=== PATIENT | male | born 1955 | race African-American/Black ===

== ENCOUNTER 2018-06-30 05:56 | Inpatient (IN) | payer OTHER ==
[2018-06-19 12:05] VITALS: BMI 27.6
[2018-06-30] MEDS ORDERED: ROPIVICAINE 0.2%/MORPH PF/KETOROLAC - 51ML DISP.SYRINGE IA ONE ×4 (07:08→11:58)
[2018-06-30] MEDS ORDERED: CELECOXIB 200 MG CAPSULE PO ONE (07:08)
[2018-06-30] MEDS ORDERED: oxyCODONE HCL 10 MG SUSTAINED ACTING TABLET PO ONE (07:08)
[2018-06-30] MEDS ORDERED: TRANEXAMIC ACID 1000 MG/10 ML VIAL IVPUSH ONE (07:08)
[2018-06-30] MEDS ORDERED: CEFAZOLIN 2 GM in DEXTROSE 5%-WATER - 50 ML IVPB ONE (07:08)
[2018-06-30] MEDS ORDERED: DEXAMETHASONE SOD PHOSPHATE/PF 10 MG/ML SDV ONE (07:31)
[2018-06-30] MEDS ORDERED: EPINEPHrine/PF 1 MG/1 ML (1:1,000) AMPULE ONE (07:31)
[2018-06-30] MEDS ORDERED: MIDAZOLAM HCL 2 MG/2 ML SINGLE DOSE VIAL ONE ×2 (07:32→08:13)
[2018-06-30] MEDS ORDERED: SODIUM CHLORIDE 0.9% P/F 10 ML VIAL IJ ONE (07:32)
[2018-06-30] MEDS ORDERED: BUPIVACAINE HCL/PF (5 MG/ML) 30 ML VIAL IJ ONE (07:32)
[2018-06-30] MEDS ORDERED: BUPIVACAINE LIPOSOME/PF (EXPAREL) 266 MG/20 ML VIAL ONE (07:32)
[2018-06-30] MEDS ORDERED: PROPOFOL 20 ML ONE ×4 (08:12)
[2018-06-30] MEDS ORDERED: SUCCINYLCHOLINE CHLORIDE 200 MG/10 ML VIAL ONE (08:12)
[2018-06-30] MEDS ORDERED: LIDOCAINE HCL 2% JELLY (5 ML/TUBE) ONE (09:52)
[2018-06-30] MEDS ORDERED: TRANEXAMIC ACID 1000 MG/10 ML VIAL ONE (11:48)
[2018-06-30] MEDS ORDERED: MAG HYDROX/AL HYDROX/SIMETH 30 ML UNIT-DOSE CUP PO PRN (12:51)
[2018-06-30] MEDS ORDERED: ONDANSETRON 4 MG/2 ML VIAL IVPUSH PRN ×2 (12:51→13:05)
[2018-06-30] MEDS ORDERED: oxyCODONE HCL 5 MG TABLET PO PRN (12:57)
[2018-06-30] MEDS ORDERED: LACTATED RINGERS SOLUTION 1,000 ML IV SCH (13:00)
[2018-06-30] MEDS ORDERED: PROMETHAZINE HCL 25 MG/1 ML VIAL IVPUSH PRN (13:05)
--- NOTE | 2018-06-30 15:18 | PN ---
Physical Exam: SUBJECTIVE: Patient seen and examined, patient is s/p bilateral knee replacement , 06/30/18, Dr Manzano, spinal anesthesia, patient is requesting comfortably in bed, reports feeling well. OBJECTIVE: patient is a 62 y/o male with a past medical history of GERD, htn, and osteoarthritis. Patient was admitted to the medical surgery floor after an elective bilateral knee replacement, with Dr Shaver, 06/30/18, spinal anesthesia. Vital Signs Period Temp Pulse Resp BP Sys/Helton Pulse Ox Last 24 Hr 98 F-98.4 F 70-89 16-18 110-128/73-83 99-100 GENERAL: The patient is awake, alert, and fully oriented, in no acute distress. HEAD: Normal with no signs of trauma. EYES: PERRL, extraocular movements intact, sclera anicteric, conjunctiva clear. No ptosis. ENT: Ears normal, nares patent, oropharynx clear without exudates, moist mucous membranes. NECK: Trachea midline, full range of motion, supple. LUNGS: Breath sounds equal, clear to auscultation bilaterally, no wheezes, no crackles, no accessory muscle use. HEART: Regular rate and rhythm, S1, S2 without murmur, rub or gallop. ABDOMEN: Soft, nontender, nondistended, normoactive bowel sounds, no guarding, no rebound, no hepatosplenomegaly, no masses. EXTREMITIES: 2+ pulses, warm, well-perfused, no edema. dressing noted to billateral knees with hemovac drains bilaterally serrous sangenous fluid draining NEUROLOGICAL: Cranial nerves II through XII grossly intact. Normal speech, gait not observed. PSYCH: Normal mood, normal affect. SKIN: Warm, dry, normal turgor, no rashes or lesions noted Active Medications Generic Name Dose Route Start Last Admin Trade Name Freq PRN Reason Stop Dose Admin Acetaminophen 650 mg 06/30/18 17:00 Tylenol - PO 07/01/18 23:01 Q6H BLADIMIR Al Hydroxide/Mg Hydroxide 30 ml 06/30/18 12:51 Mylanta Oral Suspension - PO Q4H PRN DYSPEPSIA Amlodipine Besylate 5 mg 07/01/18 10:00 Norvasc - PO DAILY BLADIMIR Aspirin 325 mg 06/30/18 22:00 Asa - PO BID [facility] Celecoxib 200 mg 06/30/18 22:00 Celebrex - PO BID [facility] Fentanyl 50 mcg 06/30/18 13:05 Sublimaze Injection - IVPUSH [id number] PRN PAIN-PACU ORDER X 4 DOSES ONLY Lactated Ringer's 1,000 mls @ 125 mls/hr 06/30/18 13:00 Lactated Ringers Solution IV 07/01/18 06:00 ASDIR [facility] Cefazolin Sodium 1 gm in 50 mls @ 100 mls/hr 06/30/18 16:00 Ancef 1 Gm Premixed Ivpb - IVPB 07/01/18 00:29 Q8H [facility] Lactobacillus Acidophilus 1 tab 07/01/18 10:00 Bacid - PO DAILY [facility] Losartan Potassium 50 mg 07/01/18 10:00 Cozaar - PO DAILY [facility] Multivitamins/Minerals/Vitamin C 1 tab 07/01/18 10:00 Tab-A-Vit - PO DAILY [facility] Ondansetron HCl 4 mg 06/30/18 12:51 Zofran Injection IVPUSH Q6H PRN NAUSEA Oxycodone HCl 5 mg 06/30/18 12:57 Roxicodone - PO Q3H PRN PAIN LEVEL 1-5 Oxycodone HCl 10 mg 06/30/18 12:58 Roxicodone - PO Q3H PRN PAIN LEVEL 6-10 Pantoprazole Sodium 40 mg 07/01/18 10:00 Protonix - PO DAILY [facility] Promethazine HCl 12.5 mg 06/30/18 13:05 Phenergan Injection - IVPUSH Q6H PRN NAUSEA-FOR RESCUE AFTER 15 MIN Senna/Docusate Sodium 2 tablet 06/30/18 22:00 Pericolace - PO BID [facility] ASSESSMENT/PLAN: 1) MS billateral knee replacement, POD #0 - monitor output from hemovac drains, repeat hgb tomm in AM - prn pain medication - physical therapy as per the orthopedist 2) cardiovascular hypertension - continue home dose losartan and amlodipine [- B/p at goal 3)GI GERD - continue protonix f/e/n - regular diet ppx - asa as per ortho - protonix - physical therapy dispo: pt requires inpatient admission - Visit type - Emergency Visit Emergency Visit: No - New Patient This patient is new to me today: Yes Date on this admission: 11/09/18 - Critical Care Critical Care patient: No - Discharge Referral Referred to [facility] Med [facility] No
[2018-06-30] MEDS ORDERED: BENZOCAINE/MENTH/CETYLPYRD CL 1 EACH LOZENGE MM PRN (15:26)
--- NOTE | 2018-06-30 15:48 | OP ---
Operative Note - Note: Operative Date: 06/30/18 Pre-Operative Diagnosis: Osteoarthritis bilateral knees Operation: Bilateral total knee replacements, curt system Findings: as dictated Implants: as dictated Post-Operative Diagnosis: Same as Pre-op Surgeon: Stef Manzano Ignition Mechanic: Douglas Kohler Anesthesiologist/SEQUINS STRINGER: Nathan Woodson Anesthesia: Spinal (Blocks: adductor canal and selective tibial blocks), Local ( 50ml .2%Ropivacaine, Ketorlac 30mg, 5mg Duramorph combination injected subcutaneously at completion of case) Specimens Removed: bone cuts Estimated Blood Loss (mls): 50 (ml) Drains & Tubes with Location: Hemovac x 2 intra-articular. Topical TXA 15ml into each joint at complation of case. Tourniquet time: L 92mins at 300mmHg, R 112 mins at 300mmHg Drains, Volume Out (mls): 700 (ml clear urine output. 11ooml LR administered)
--- NOTE | 2018-06-30 15:49 | SURG ---
Surgery Setter Machine Note Setter Machine: Douglas Kohler PA-C (Suzy) Date of Service: 06/30/18 Diagnosis: bilateral knee osteoarthritis Procedure: bilateral total knee replacements, curt system I was present for the entirety of the operative procedure. For further detail, please refer to operative report. Visit type - Case Type Case Type: Scheduled - Emergency Emergency Visit: No - New patient This patient is new to me today: Yes Date on this admission: 06/30/18 - Critical Care Critical Care patient: No
[2018-06-30] MEDS ORDERED: morphine SULFATE 4 MG/ML VIAL IVPUSH PRN (15:51)
[2018-06-30] MEDS: ACETAMINOPHEN 325 MG TABLET (FP) PO SCH ×2 (16:53→23:14)
[2018-06-30] MEDS: oxyCODONE HCL 5 MG TABLET PO PRN ×2 (16:54→21:02)
[2018-06-30] MEDS: CEFAZOLIN 1 GM/D5W 1 GM/50 ML BAG IVPB SCH ×2 (16:55→23:15)
[2018-06-30] MEDS: SENNOSIDES/DOCUSATE COMBO (SENNA PLUS) TABLET (UD) PO SCH (21:01)
[2018-06-30] MEDS: CELECOXIB 200 MG CAPSULE PO SCH (21:01)
[2018-06-30] MEDS: ASPIRIN 325 MG TABLET PO SCH (21:01)
[2018-07-01] MEDS: ACETAMINOPHEN 325 MG TABLET (FP) PO SCH ×3 (06:19→23:37)
[2018-07-01] MEDS: oxyCODONE HCL 5 MG TABLET PO PRN ×4 (06:19→21:19)
[2018-07-01 08:34] LABS: HEMATOCRIT 39.1 % (35.4-49); HEMOGLOBIN 12.9 GM/dl (11.7-16.9); MCH 32.5 pg (25.7-33.7); MEAN CELL VOLUME 98.6 fl (80-96); PLATELET COUNT 207 K/MM3 (134-434); RBC 3.97 M/mm3 (4.00-5.60); RDW 12.4 % (11.9-15.9); WHITE BLOOD COUNT 7.9 K/mm3 (4.0-10.8)
[2018-07-01 08:43] LABS: ANION GAP 5 MMOL/L (8-16); BLOOD UREA NITROGEN 14 mg/dl (7-18); CALCIUM 8.8 mg/dl (8.4-10.2); CHLORIDE 105 mmol/L (98-107); CO2 27 mmol/L (22-28); CREATININE 0.8 mg/dl (0.6-1.3); GLUCOSE,RANDOM 124 mg/dl (74-106); MAGNESIUM 1.7 mg/dL (1.8-2.4); POTASSIUM 4.8 mmol/L (3.5-5.1); SODIUM 137 mmol/L (136-145)
--- NOTE | 2018-07-01 09:13 | OP ---
DATE OF OPERATION: DATE OF DICTATION: 06/30/2018 PREOPERATIVE DIAGNOSIS: Bilateral knee osteoarthritis. POSTOPERATIVE DIAGNOSIS: Bilateral knee osteoarthritis. OPERATION PERFORMED: Bilateral total knee arthroplasty. SURGEON: Stef Manzano MD PACKING MACHINE OPERATOR: ALE. ANESTHESIA: Spinal and block. DISPOSITION: Patient returned to the recovery room in stable condition. COMPONENTS USED: Same sizes were used on both left and the right except for left sides on the left and right sides on the right. We used to size 6 posterior stabilized press-fit femoral component. We used a size 6 press-fit tibial component and an 11-mm posterior stabilized articular insert and a 33-mm cemented patella component. DRAINS: Size 1 Hemovac each side. ESTIMATED BLOOD LOSS: Less than 50 mL each side. TOURNIQUET TIME: 90 minutes each side. Release is none. Postoperative range of motion is 0-135 degrees each side. FINDINGS: Severe end-stage arthritis. INDICATION FOR THE PROCEDURE: Patient failed nonoperative treatment for bilateral knee arthritis and was indicated for a bilateral total knee replacement. Preoperatively in the waiting area as well as in the office, I had a long discussion with the patient regarding the plan, the expected outcome, and the risks, benefits, and alternatives of surgery. The risks include, but are not limited to, infection, which may require future surgery and removal of implants, bleeding, which may require transfusion, damage to nerves, arteries, veins, tendons, muscles, and other adjacent structures leading to possible numbness, weakness, decreased function, and/or possible need for surgical repair. Also discussed was the possibility of intraoperative and postoperative fractures, implant loosening, stiffness, need for extensive therapy, and need for revision surgery for a variety of reasons. Also discussed blood clots and other possible medical complications. This was discussed at least, and consent was obtained. We also discussed the possibility of doing 1 leg at a time, and this would decrease his risk. PROCEDURE IN DETAIL: The patient was taken to the operating room and placed on the operating room table in a supine position. Following induction of anesthesia, a well-padded tourniquet was placed high on both thighs, and both lower extremities were prepped and draped in a sterile fashion. A time-out was performed to confirm the correct side, verified that the sites were marked, and confirmed the correct patient and procedure to be performed as well as that the patient received the appropriate preoperative antibiotics, and tranexamic acid, and had a compression device on either leg since it was bilateral. The exact same procedure was performed first on the left and then the right. We waited until the bandage was on the left and then started the left side. Tourniquet was elevated by a midline incision and medial parapatellar arthrotomy. Checkpoints were placed in the femur and tibia, and through stab incisions in the tibia and femur we placed the antenna. The patient was then registered, and the knee was balanced. We planned our surgery with appropriate cuts. We then well protecting the surrounding soft tissues, made our bony cuts. We then placed a laminar manager rfid sequentially in the lateral and mild joint spaces. Posterior osteophytes, cruciate ligaments, and menisci were all excised. We then placed a trial tibial component and a trial femoral component. Drilled the lug holes and the box for the femur with an 11-mm polyethylene. We had full extension and were well balanced with regards to varus and valgus stress. We had full flexion. The patella tracked centrally. There was good soft tissue tension. We then measured the patella at 24 mm, cut it down to 15 mm using a guide. Reconstructed it with a 33-mm button and then performed a lateral double cut with a patella trial in place. The patella tracked centrally. There was good soft tissue tension, range of motion, and balance. We then punched the tibia in the appropriate external rotation. Did a 3-minute soak with a diluted Betadine solution. The knee was copiously irrigated. We impacted the final implants as listed above and cemented the patella and removed excess cement. When all of the cement was hardened, we copiously irrigated the knee, used 1.5 g of tranexamic acid topically on each knee, injected local anesthetic, and placed the deep drain. We closed the arthrotomy with 0 Vicryl and 0 V-Lock. With the arthrotomy closed, there was good stability, range of motion, soft tissue tension, and the patella tracked centrally. A 2-0 Vicryl and bill were used after all checkpoints and antenna had been removed prior to closure of the arthrotomy. Final range of motion 0-135 degrees. Equal balance on both sides. Wound classification clean. Specimen is bone. Complications, none known. Compartments were soft at the end of the procedure. Pulses were palpated, and the patient was returned to the recovery room in stable condition and will be mobilized and weightbearing as tolerated. Zander SANDERS/[id number]
[2018-07-01] MEDS: LOSARTAN POTASSIUM 50 MG TABLET (FP) PO SCH (09:43)
[2018-07-01] MEDS: CELECOXIB 200 MG CAPSULE PO SCH ×2 (09:44→21:19)
[2018-07-01] MEDS: ASPIRIN 325 MG TABLET PO SCH ×2 (09:44→21:19)
[2018-07-01] MEDS: LACTOBACILLUS ACIDOPHILUS 1 TABLET PO SCH (09:44)
[2018-07-01] MEDS: amLODIPine BESYLATE 5 MG TABLET (FP) PO SCH (09:44)
[2018-07-01] MEDS: SENNOSIDES/DOCUSATE COMBO (SENNA PLUS) TABLET (UD) PO SCH ×2 (09:45→21:19)
[2018-07-01] MEDS: MULTIVITAMINS (DAILY MVI) TABLET (FP) PO SCH (09:45)
[2018-07-01] MEDS: PANTOPRAZOLE 40 MG TABLET (FP) PO SCH (09:45)
--- NOTE | 2018-07-01 09:52 | PN ---
Progress Note (short form) - Note Progress Note: no complaints a vitals and labs reviewed a and o x3 nad both legs nvid dressings dry drains removed A/P: s/p bl tka pod#1 doing well -pt/ot/wbat asa and mechanical for vte proph -dispo: rehab tuesday
[2018-07-01] MEDS ORDERED: PATIENT'S OWN MEDICATION (NON-FORMULARY) (L.Acidoph,Paracasei, B.Lactis [Probiotic] 1 EACH PO SCH (10:00)
[2018-07-01] MEDS ORDERED: PATIENT'S OWN MEDICATION (NON-FORMULARY) (Dexlansoprazole [Dexilant] 60 MG) PO SCH (10:00)
[2018-07-01] MEDS ORDERED: SODIUM CHLORIDE 1,000 ML IV STA (14:35)
--- NOTE | 2018-07-01 14:43 | PN ---
Physical Exam: SUBJECTIVE: Patient seen and examined at bedside. Subdued. Became dizzy and nauseous earlier with standing. Feels better now. Pain is presently well- managed. Bilateral drains removed earlier by Dr. Manzano. OBJECTIVE: Vital Signs Period Temp Pulse Resp BP Sys/Helton Pulse Ox Last 24 Hr 97.4 F-98.3 F 65-92 16-19 111-127/65-74 96-99 GENERAL: The patient is awake, alert, and fully oriented, in no acute distress. LUNGS: Breath sounds equal, clear to auscultation bilaterally, no wheezes, no crackles, no accessory muscle use. HEART: Regular rate and rhythm, S1, S2 ABDOMEN: Soft, nontender, nondistended LOWER EXTREMITIES: SCDs, TEDs, surgical dressings c/d/i; surgical wounds not visualized NEUROLOGICAL: Cranial nerves II through XII grossly intact. Normal speech. SKIN: Warm, dry, normal turgor Laboratory Results - last 24 hr 07/01/18 07/01/18 07:20 07:20 WBC 7.9 RBC 3.97 L Hgb 12.9 Hct 39.1 MCV 98.6 H MCH 32.5 MCHC 33.0 RDW 12.4 Plt Count 207 MPV 9.0 Sodium 137 Potassium 4.8 Chloride 105 Carbon Dioxide 27 Anion Gap 5 L BUN 14 Creatinine 0.8 Creat Clearance w eGFR > 60 Random Glucose 124 H D Calcium 8.8 Magnesium 1.7 L Active Medications Generic Name Dose Route Start Last Admin Trade Name Freq PRN Reason Stop Dose Admin Acetaminophen 650 mg 06/30/18 17:00 07/01/18 06:19 Tylenol - PO 07/01/18 23:01 650 mg Q6H BLADIMIR Administration Al Hydroxide/Mg Hydroxide 30 ml 06/30/18 12:51 Mylanta Oral Suspension - PO Q4H PRN DYSPEPSIA Amlodipine Besylate 5 mg 07/01/18 10:00 07/01/18 09:44 Norvasc - PO 5 mg DAILY BLADIMIR Administration Aspirin 325 mg 06/30/18 22:00 07/01/18 09:44 Asa - PO 325 mg BID BLADIMIR Administration Benzocaine/Menthol 1 each 06/30/18 15:26 06/30/18 17:00 Cepacol Lozenge - MM 1 each PRN PRN Administration SORE THROAT Celecoxib 200 mg 06/30/18 22:00 07/01/18 09:44 Celebrex - PO 200 mg BID BLADIMIR Administration Fentanyl 50 mcg 06/30/18 13:05 Sublimaze Injection - IVPUSH [id number] PRN PAIN-PACU ORDER X 4 DOSES ONLY Sodium Chloride 1,000 mls @ 1,000 mls/hr 07/01/18 14:35 Normal Saline - IV 07/01/18 15:34 ASDIR ST[facility] Lactobacillus Acidophilus 1 tab 07/01/18 10:00 07/01/18 09:44 Bacid - PO 1 tab DAILY BLADIMIR Administration Losartan Potassium 50 mg 07/01/18 10:00 07/01/18 09:43 Cozaar - PO 50 mg DAILY BLADIMIR Administration Morphine Sulfate 4 mg 06/30/18 15:51 Morphine Sulfate IVPUSH Q6H PRN PAIN LEVEL 4-6 Multivitamins/Minerals/Vitamin C 1 tab 07/01/18 10:00 07/01/18 09:45 Tab-A-Vit - PO 1 tab DAILY BLADIMIR Administration Ondansetron HCl 4 mg 06/30/18 12:51 Zofran Injection IVPUSH Q6H PRN NAUSEA Oxycodone HCl 5 mg 06/30/18 12:57 Roxicodone - PO Q3H PRN PAIN LEVEL 1-3 Oxycodone HCl 10 mg 06/30/18 12:58 07/01/18 09:41 Roxicodone - PO 10 mg Q3H PRN Administration PAIN LEVEL 6-10 Pantoprazole Sodium 40 mg 07/01/18 10:00 07/01/18 09:45 Protonix - PO 40 mg DAILY BLADIMIR Administration Promethazine HCl 12.5 mg 06/30/18 13:05 Phenergan Injection - IVPUSH Q6H PRN NAUSEA-FOR RESCUE AFTER 15 MIN Senna/Docusate Sodium 2 tablet 06/30/18 22:00 07/01/18 09:45 Pericolace - PO 2 tablet BID BLADIMIR Administration ASSESSMENT/PLAN 62 year-old male with a PMH signifiant for HTN, HLD, and prostate cancer admitted for bilateral knee replacements. Osteoarthritis bilateral knees s/p ANDRIA bilateral knee replacements Orthostasis likely secondary to low volume state --both drains pulled this morning by surgeon --was orthostatic, dizzy, and nauseous with standing today x 2 attempts; had received total ~1.5L since surgery --1L bolus now; then NS @ 150/hr x 24 hours --repeat cbc ordered, nurse made one unsuccessful attempt and patient refused any further attempts --perioperative antibiotics per surgery --pain meds per surgery --incentive spirometry --daily physical therapy --cbc in am --orthostatics Hypertension --BP stable Hyperlipidemia Prostate cancer FEN Fluids: NS @ 150mL/hr Electrolytes: replete as indicated Nutrition: DVT prophylaxis: ASA 325mg BID; SCDs, TEDs, oob, ambulation Daily PT Dispo: continues to require inpatient care. Full code.
[2018-07-01] MEDS ORDERED: SODIUM CHLORIDE 1,000 ML IV SCH (14:45)
[2018-07-01] MEDS ORDERED: MAGNESIUM SULF 50% (8.12 MEQ/2 ML-1 GM VIAL) IVPB ONE (15:31)
--- NOTE | 2018-07-01 17:06 | CONSULT ---
Consultation: REQUESTING PROVIDER: Dr. Manzano CONSULT REQUEST: We have been asked to medically evaluate and monitor this patient post-operatively. HISTORY OF PRESENT ILLNESS: 62 year-old male with a PMH signifiant for HTN, HLD, and prostate cancer admitted for bilateral knee replacements. REVIEW OF SYSTEMS - post-operatively CONSTITUTIONAL: Absent: fever, chills, diaphoresis, generalized weakness, malaise, loss of appetite, weight change HEENT: Absent: rhinorrhea, nasal congestion, throat pain, throat swelling, difficulty swallowing, mouth swelling, ear pain, eye pain, visual changes CARDIOVASCULAR: +lightheadedness, nausea, weakness with standing today x 2 Absent: chest pain, syncope, palpitations, irregular heart rate, lightheadedness , peripheral edema RESPIRATORY: Absent: cough, shortness of breath, dyspnea with exertion, orthopnea, wheezing, stridor, hemoptysis GASTROINTESTINAL: Absent: abdominal pain, abdominal distension, nausea, vomiting, diarrhea, constipation, melena, hematochezia GENITOURINARY: Absent: dysuria, frequency, urgency, hesitancy, hematuria, flank pain, genital pain MUSCULOSKELETAL: +bilateral knee pain Absent: myalgia, arthralgia, joint swelling, back pain, neck pain SKIN: Absent: rash, itching, pallor HEMATOLOGIC/IMMUNOLOGIC: Absent: easy bleeding, easy bruising, lymphadenopathy, frequent infections ENDOCRINE: Absent: unexplained weight gain, unexplained weight loss, heat intolerance, cold intolerance NEUROLOGIC: Absent: headache, focal weakness or paresthesias, dizziness, unsteady gait, seizure, mental status changes, bladder or bowel incontinence PSYCHIATRIC: Absent: anxiety, depression, suicidal or homicidal ideation, hallucinations. PHYSICAL EXAMINATION Vital Signs - 24 hr 06/30/18 06/30/18 07/01/18 18:00 22:00 03:00 Temperature 97.4 F L 97.6 F 98 F Pulse Rate 69 65 Respiratory 19 16 17 Rate Blood Pressure 127/70 112/68 116/65 O2 Sat by Pulse 96 97 Oximetry (%) 07/01/18 07/01/18 07/01/18 06:00 08:51 09:23 Temperature 98.3 F 98.2 F Pulse Rate 71 92 H Respiratory 16 16 18 Rate Blood Pressure 111/67 126/74 O2 Sat by Pulse 98 99 99 Oximetry (%) 07/01/18 14:00 Temperature 98.4 F Pulse Rate 70 Respiratory 18 Rate Blood Pressure 124/74 O2 Sat by Pulse 99 Oximetry (%) GENERAL: The patient is awake, alert, and fully oriented, in no acute distress. LUNGS: Breath sounds equal, clear to auscultation bilaterally, no wheezes, no crackles, no accessory muscle use. HEART: Regular rate and rhythm, S1, S2 ABDOMEN: Soft, nontender, nondistended LOWER EXTREMITIES: SCDs, TEDs, surgical dressings c/d/i; surgical wounds not visualized NEUROLOGICAL: Cranial nerves II through XII grossly intact. Laboratory Results - last 24 hr 07/01/18 07/01/18 07:20 07:20 WBC 7.9 RBC 3.97 L Hgb 12.9 Hct 39.1 MCV 98.6 H MCH 32.5 MCHC 33.0 RDW 12.4 Plt Count 207 MPV 9.0 Sodium 137 Potassium 4.8 Chloride 105 Carbon Dioxide 27 Anion Gap 5 L BUN 14 Creatinine 0.8 Creat Clearance w eGFR > 60 Random Glucose 124 H D Calcium 8.8 Magnesium 1.7 L Active Medications Generic Name Dose Route Start Last Admin Trade Name Freq PRN Reason Stop Dose Admin Acetaminophen 650 mg 06/30/18 17:00 07/01/18 11:00 Tylenol - PO 07/01/18 23:01 650 mg Q6H BLADIMIR Administration Al Hydroxide/Mg Hydroxide 30 ml 06/30/18 12:51 Mylanta Oral Suspension - PO Q4H PRN DYSPEPSIA Amlodipine Besylate 5 mg 07/01/18 10:00 07/01/18 09:44 Norvasc - PO 5 mg DAILY BLADIMIR Administration Aspirin 325 mg 06/30/18 22:00 07/01/18 09:44 Asa - PO 325 mg BID BLADIMIR Administration Benzocaine/Menthol 1 each 06/30/18 15:26 06/30/18 17:00 Cepacol Lozenge - MM 1 each PRN PRN Administration SORE THROAT Celecoxib 200 mg 06/30/18 22:00 07/01/18 09:44 Celebrex - PO 200 mg BID BLADIMIR Administration Fentanyl 50 mcg 06/30/18 13:05 Sublimaze Injection - IVPUSH [id number] PRN PAIN-PACU ORDER X 4 DOSES ONLY Sodium Chloride 1,000 mls @ 150 mls/hr 07/01/18 14:45 07/01/18 15:18 Normal Saline - IV 07/02/18 14:44 150 mls/hr ASDIR BLADIMIR Administration Lactobacillus Acidophilus 1 tab 07/01/18 10:00 07/01/18 09:44 Bacid - PO 1 tab DAILY BLADIMIR Administration Losartan Potassium 50 mg 07/01/18 10:00 07/01/18 09:43 Cozaar - PO 50 mg DAILY BLADIMIR Administration Morphine Sulfate 4 mg 06/30/18 15:51 Morphine Sulfate IVPUSH Q6H PRN PAIN LEVEL 4-6 Multivitamins/Minerals/Vitamin C 1 tab 07/01/18 10:00 07/01/18 09:45 Tab-A-Vit - PO 1 tab DAILY BLADIMIR Administration Ondansetron HCl 4 mg 06/30/18 12:51 Zofran Injection IVPUSH Q6H PRN NAUSEA Oxycodone HCl 5 mg 06/30/18 12:57 Roxicodone - PO Q3H PRN PAIN LEVEL 1-3 Oxycodone HCl 10 mg 06/30/18 12:58 07/01/18 15:11 Roxicodone - PO 10 mg Q3H PRN Administration PAIN LEVEL 6-10 Pantoprazole Sodium 40 mg 07/01/18 10:00 07/01/18 09:45 Protonix - PO 40 mg DAILY BLADIMIR Administration Promethazine HCl 12.5 mg 06/30/18 13:05 Phenergan Injection - IVPUSH Q6H PRN NAUSEA-FOR RESCUE AFTER 15 MIN Senna/Docusate Sodium 2 tablet 06/30/18 22:00 07/01/18 09:45 Pericolace - PO 2 tablet BID BLADIMIR Administration ASSESSMENT/PLAN: 62 year-old male with a PMH signifiant for HTN, HLD, and prostate cancer admitted for bilateral knee replacements. Osteoarthritis bilateral knees s/p ANDRIA bilateral knee replacements Orthostatic hypotension --both drains pulled this morning by surgeon --became hypotensive, dizzy, and nauseous with standing today x 2 attempts; received ~1.5L since surgery --1L bolus now; then NS @ 150/hr --repeat cbc ordered, nurse made one unsuccessful attempt and patient refused any further attempts --perioperative antibiotics per surgery --pain meds per surgery --incentive spirometry --daily physical therapy --cbc in am --orthostatics Hypertension --BP stable --continue Losartan, amlodipine Hyperlipidemia --not on statin therapy Prostate cancer --stable FEN Fluids: NS @ 150mL/hr Electrolytes: replete as indicated Nutrition: regular diet DVT prophylaxis: ASA 325mg BID; SCDs, TEDs, oob, ambulation Daily PT Dispo: We will continue to follow the patient with you. Thank you for this consultative opportunity. Visit type - Emergency Visit Emergency Visit: No - New Patient This patient is new to me today: Yes Date on this admission: 07/01/18 - Critical Care Critical Care patient: No
[2018-07-02] MEDS: oxyCODONE HCL 5 MG TABLET PO PRN ×3 (03:45→19:48)
[2018-07-02] MEDS ORDERED: oxyCODONE HCL 10 MG SUSTAINED ACTING TABLET PO ONE (09:01)
--- NOTE | 2018-07-02 09:04 | PN ---
Progress Note (short form) - Note Progress Note: seen and examined. increased pain today vitals and labs reviewed calfs and compartments soft nvid A/P: POD#2 s/p bl tka -tylenol was stopped and block wearing off, will start iv tylenol and start oxycontin -vte prohp w asa and mechanical -dispo: rehab tomorrow
[2018-07-02] MEDS: amLODIPine BESYLATE 5 MG TABLET (FP) PO SCH (09:24)
[2018-07-02] MEDS: CELECOXIB 200 MG CAPSULE PO SCH ×2 (09:24→21:17)
[2018-07-02] MEDS: PANTOPRAZOLE 40 MG TABLET (FP) PO SCH (09:24)
[2018-07-02] MEDS: ASPIRIN 325 MG TABLET PO SCH ×2 (09:24→21:16)
[2018-07-02] MEDS: LACTOBACILLUS ACIDOPHILUS 1 TABLET PO SCH (09:24)
[2018-07-02] MEDS: MULTIVITAMINS (DAILY MVI) TABLET (FP) PO SCH (09:24)
[2018-07-02] MEDS: ACETAMINOPHEN 1000 MG/100 ML VIAL (NON FORMULARY) IVPB SCH ×3 (09:24→21:17)
[2018-07-02] MEDS: LOSARTAN POTASSIUM 50 MG TABLET (FP) PO SCH (09:24)
[2018-07-02] MEDS: SENNOSIDES/DOCUSATE COMBO (SENNA PLUS) TABLET (UD) PO SCH ×2 (09:24→21:16)
[2018-07-02 09:32] LABS: HEMATOCRIT 36.5 % (35.4-49); HEMOGLOBIN 12.6 GM/dl (11.7-16.9); MCH 34.1 pg (25.7-33.7); MCHC 34.7 g/dl (32.0-35.9); MEAN CELL VOLUME 98.4 fl (80-96); MEAN PLT VOLUME 9.2 fl (7.5-11.1); PLATELET COUNT 179 K/MM3 (134-434); RBC 3.71 M/mm3 (4.00-5.60); RDW 12.4 % (11.9-15.9); WHITE BLOOD COUNT 8.4 K/mm3 (4.0-10.8)
--- NOTE | 2018-07-02 09:42 | PN ---
Physical Exam: SUBJECTIVE: Patient seen and examined oob to chair. Feels better today. Walked 15 feet with PT, BP remained stable, no dizziness or lightheadedness. OBJECTIVE: Vital Signs Period Temp Pulse Resp BP Sys/Hel[place] Pulse Ox Last 24 Hr 98.3 F-99.2 F 68-129 16-20 100-157/50-79 95-99 GENERAL: The patient is awake, alert, and fully oriented, in no acute distress. LUNGS: Breath sounds equal, clear to auscultation bilaterally, no wheezes, no crackles, no accessory muscle use. HEART: Regular rate and rhythm, S1, S2 ABDOMEN: Soft, nontender, nondistended LOWER EXTREMITIES: SCDs, TEDs, surgical dressings c/d/i; surgical wounds not visualized NEUROLOGICAL: Cranial nerves II through XII grossly intact. Laboratory Results - last 24 hr 07/02/18 08:00 WBC 8.4 RBC 3.71 L Hgb 12.6 Hct 36.5 MCV 98.4 H MCH 34.1 H MCHC 34.7 RDW 12.4 Plt Count 179 MPV 9.2 Active Medications Generic Name Dose Route Start Last Admin Trade Name Freq PRN Reason Stop Dose Admin Acetaminophen 1,000 mg 07/02/18 09:00 07/02/18 09:24 Ofirmev Injection - IVPB 07/04/18 03:01 1,000 mg Q6H BLADIMIR Administration Al Hydroxide/Mg Hydroxide 30 ml 06/30/18 12:51 Mylanta Oral Suspension - PO Q4H PRN DYSPEPSIA Amlodipine Besylate 5 mg 07/01/18 10:00 07/02/18 09:24 Norvasc - PO 5 mg DAILY BLADIMIR Administration Aspirin 325 mg 06/30/18 22:00 07/02/18 09:24 Asa - PO 325 mg BID BLADIMIR Administration Benzocaine/Menthol 1 each 06/30/18 15:26 06/30/18 17:00 Cepacol Lozenge - MM 1 each PRN PRN Administration SORE THROAT Celecoxib 200 mg 06/30/18 22:00 07/02/18 09:24 Celebrex - PO 200 mg BID BLADIMIR Administration Fentanyl 50 mcg 06/30/18 13:05 Sublimaze Injection - IVPUSH [id number] PRN PAIN-PACU ORDER X 4 DOSES ONLY Sodium Chloride 1,000 mls @ 150 mls/hr 07/01/18 14:45 07/01/18 15:18 Normal Saline - IV 07/02/18 14:44 150 mls/hr ASDIR BLADIMIR Administration Lactobacillus Acidophilus 1 tab 07/01/18 10:00 07/02/18 09:24 Bacid - PO 1 tab DAILY BLADIMIR Administration Losartan Potassium 50 mg 07/01/18 10:00 07/02/18 09:24 Cozaar - PO 50 mg DAILY BLADIMIR Administration Morphine Sulfate 4 mg 06/30/18 15:51 Morphine Sulfate IVPUSH Q6H PRN PAIN LEVEL 4-6 Multivitamins/Minerals/Vitamin C 1 tab 07/01/18 10:00 07/02/18 09:24 Tab-A-Vit - PO 1 tab DAILY BLADIMIR Administration Ondansetron HCl 4 mg 06/30/18 12:51 07/02/18 06:49 Zofran Injection IVPUSH 4 mg Q6H PRN Administration NAUSEA Oxycodone HCl 5 mg 06/30/18 12:57 Roxicodone - PO Q3H PRN PAIN LEVEL 1-3 Oxycodone HCl 10 mg 06/30/18 12:58 07/02/18 08:00 Roxicodone - PO 10 mg Q3H PRN Administration PAIN LEVEL 6-10 Pantoprazole Sodium 40 mg 07/01/18 10:00 07/02/18 09:24 Protonix - PO 40 mg DAILY BLADIMIR Administration Promethazine HCl 12.5 mg 06/30/18 13:05 Phenergan Injection - IVPUSH Q6H PRN NAUSEA-FOR RESCUE AFTER 15 MIN Senna/Docusate Sodium 2 tablet 06/30/18 22:00 07/02/18 09:24 Pericolace - PO 2 tablet BID BLADIMIR Administration ASSESSMENT/PLAN 62 year-old male with a PMH signifiant for HTN, HLD, and prostate cancer admitted for bilateral knee replacements. Osteoarthritis bilateral knees s/p [place]RI[place] bilateral knee replacements Orthostatic hypotension --orthostasis improved with IV fluids over past 24 hours --perioperative antibiotics per surgery --pain meds per surgery --incentive spirometry Hypertension --BP stable --continue Losartan, amlodipine Hyperlipidemia --not on statin therapy Prostate cancer --stable Hypomagnesemia --repleted FEN Fluids: PO intake adequate Electrolytes: replete as indicated Nutrition: regular diet DVT prophylaxis: ASA 325mg BID; SCDs, TEDs, oob, ambulation Daily PT Dispo: We will continue to follow the patient with you. Thank you for this consultative opportunity. Visit type - Emergency Visit Emergency Visit: Yes ED Registration Date: 06/30/18 Care time: The patient presented to the Emergency Department on the above date and was hospitalized for further evaluation of their emergent condition. - New Patient This patient is new to me today: No - Critical Care Critical Care patient: No
[2018-07-02 10:27] LABS: ANION GAP 7 MMOL/L (8-16); BLOOD UREA NITROGEN 12 mg/dl (7-18); CHLORIDE 108 mmol/L (98-107); CO2 23 mmol/L (22-28); CREATININE 0.7 mg/dl (0.6-1.3); GLUCOSE,RANDOM 94 mg/dl (74-106); POTASSIUM 4.2 mmol/L (3.5-5.1); SODIUM 138 mmol/L (136-145)
[2018-07-02 10:28] LABS: CALCIUM 8.2 mg/dl (8.4-10.2)
[2018-07-02] MEDS ORDERED: MAGNESIUM OXIDE 400 MG TABLET (FP) PO ONE (18:00)
[2018-07-03] MEDS ORDERED: ACETAMINOPHEN INJECTION 100 ML IVPB ONE (03:16)
[2018-07-03] MEDS: ACETAMINOPHEN 1000 MG/100 ML VIAL (NON FORMULARY) IVPB SCH ×4 (03:26→21:21)
[2018-07-03] MEDS: oxyCODONE HCL 5 MG TABLET PO PRN ×3 (06:36→13:45)
[2018-07-03] MEDS: LACTOBACILLUS ACIDOPHILUS 1 TABLET PO SCH (09:45)
[2018-07-03] MEDS: ASPIRIN 325 MG TABLET PO SCH ×2 (09:45→22:20)
[2018-07-03] MEDS: LOSARTAN POTASSIUM 50 MG TABLET (FP) PO SCH (09:46)
[2018-07-03] MEDS: CELECOXIB 200 MG CAPSULE PO SCH ×2 (09:46→22:20)
[2018-07-03] MEDS: SENNOSIDES/DOCUSATE COMBO (SENNA PLUS) TABLET (UD) PO SCH ×2 (09:46→22:20)
[2018-07-03] MEDS: amLODIPine BESYLATE 5 MG TABLET (FP) PO SCH (09:46)
[2018-07-03] MEDS: PANTOPRAZOLE 40 MG TABLET (FP) PO SCH (09:47)
[2018-07-03] MEDS: MULTIVITAMINS (DAILY MVI) TABLET (FP) PO SCH (09:47)
--- NOTE | 2018-07-03 11:03 | DS ---
Physical Exam: SUBJECTIVE: Patient seen and examined oob to chair. Had some pain after PT today. OBJECTIVE: Vital Signs Period Temp Pulse Resp BP Sys/[place] Pulse Ox Last 24 Hr 98.6 F-99.4 F 83-110 18-18 115-138/65-83 100-100 PHYSICAL EXAM GENERAL: The patient is awake, alert, and fully oriented, in no acute distress. LUNGS: Breath sounds equal, clear to auscultation bilaterally, no wheezes, no crackles, no accessory muscle use. HEART: Regular rate and rhythm, S1, S2 ABDOMEN: Soft, nontender, nondistended LOWER EXTREMITIES: SCDs, TEDs, surgical dressings c/d/i; surgical wounds not visualized NEUROLOGICAL: Cranial nerves II through XII grossly intact. LABS CBCD WBC 8.4 K/mm3 (4.0-10.8) 07/02/18 08:00 RBC 3.71 M/mm3 (4.00-5.60) L 07/02/18 08:00 Hgb 12.6 GM/dl (11.7-16.9) 07/02/18 08:00 Hct 36.5 % (35.4-49) 07/02/18 08:00 MCV 98.4 fl (80-96) H 07/02/18 08:00 MCHC 34.7 g/dl (32.0-35.9) 07/02/18 08:00 RDW 12.4 % (11.9-15.9) 07/02/18 08:00 Plt Count 179 K/MM3 (134-434) 07/02/18 08:00 MPV 9.2 fl (7.5-11.1) 07/02/18 08:00 CMP Sodium 138 mmol/L (136-145) 07/02/18 08:00 Potassium 4.2 mmol/L (3.5-5.1) 07/02/18 08:00 Chloride 108 mmol/L (98-107) H 07/02/18 08:00 Carbon Dioxide 23 mmol/L (22-28) 07/02/18 08:00 Anion Gap 7 MMOL/L (8-16) L 07/02/18 08:00 BUN 12 mg/dl (7-18) 07/02/18 08:00 Creatinine 0.7 mg/dl (0.6-1.3) 07/02/18 08:00 Creat Clearance w eGFR > 60 (>60) 07/02/18 08:00 Calcium 8.2 mg/dl (8.4-10.2) L 07/02/18 08:00 HOSPITAL COURSE: Date of Admission:06/30/18 Date of Discharge: 07/03/18 Pre hospital course 62 year-old male with a PMH signifiant for HTN, HLD, and prostate cancer admitted for bilateral knee replacements. Hospital course by problem list Osteoarthritis bilateral knees s/p [place]RIA bilateral knee replacements on 06/30/18 Orthostatic hypotension --drains pulled on 07/01 --on POD #1, patient became hypotensive, dizzy, and nauseous with standing x 2 attempts; he was fluid resuscitated overnight and symptoms improved significantly --perioperative antibiotics were completed --pain was well-managed with PO meds --worked daily with PT, able to weight bear and ambulate short distances Hypertension --BP remained stable --continued Losartan, amlodipine Hyperlipidemia --not on statin therapy Prostate cancer --stable DVT prophylaxis: ASA 325mg BID x 6 weeks; SCDs, TEDs, oob, ambulation Minutes to complete discharge: 35 Discharge Summary Reason For Visit: OSTEOARTHRITIS BILATERAL KNEES Condition: Improved - Instructions Diet, Activity, Other Instructions: Please follow the instructions given to you by Dr. Manzano. Referrals: Stef Manzano MD [Staff Physician] - Disposition: SNF FACILITY - Home Medications Comprehensive Discharge Medication List: Ambulatory Orders Amlodipine Besylate 5 mg PO DAILY 06/19/18 Dexlansoprazole [Dexilant] 60 mg PO DAILY 06/19/18 Losartan Potassium 50 mg PO DAILY 06/19/18 Ascorbic Acid/Multivit-Min [Emergen-C 1,000 mg Packet] 1,000 mg PO DAILY L.acidoph,Paracasei, B.lactis [Probiotic] 1 each PO DAILY 06/30/18 Aspirin [ASA -] 325 mg PO BID tablet 07/03/18 Celecoxib [Celebrex] 200 mg PO BID #60 capsule 07/03/18 oxyCODONE HCL [Roxicodone -] 5 mg PO Q6H PRN #28 tablet MDD 4 07/03/18 This patient is new to me today: No Emergency Visit: No Critical Care patient: No - Discharge Referral Referred to [facility] Med P.C.: No
[2018-07-04] MEDS: oxyCODONE HCL 5 MG TABLET PO PRN ×4 (01:29→20:27)
[2018-07-04] MEDS ORDERED: ACETAMINOPHEN INJECTION 100 ML IVPB ONE (01:43)
[2018-07-04] MEDS: ACETAMINOPHEN 1000 MG/100 ML VIAL (NON FORMULARY) IVPB SCH (03:15)
[2018-07-04] MEDS: SENNOSIDES/DOCUSATE COMBO (SENNA PLUS) TABLET (UD) PO SCH (09:19)
[2018-07-04] MEDS: LACTOBACILLUS ACIDOPHILUS 1 TABLET PO SCH (09:19)
[2018-07-04] MEDS: PANTOPRAZOLE 40 MG TABLET (FP) PO SCH (09:19)
[2018-07-04] MEDS: MULTIVITAMINS (DAILY MVI) TABLET (FP) PO SCH (09:20)
[2018-07-04] MEDS: ASPIRIN 325 MG TABLET PO SCH ×2 (09:20→21:19)
[2018-07-04] MEDS: CELECOXIB 200 MG CAPSULE PO SCH ×2 (09:20→21:20)
[2018-07-04] MEDS: amLODIPine BESYLATE 5 MG TABLET (FP) PO SCH (09:23)
[2018-07-04] MEDS: LOSARTAN POTASSIUM 50 MG TABLET (FP) PO SCH (09:23)
--- NOTE | 2018-07-04 13:01 | PN ---
Physical Exam: SUBJECTIVE: Patient seen and examined. Feeling much better. Walking with PT and independently. OBJECTIVE: Vital Signs Period Temp Pulse Resp BP Sys/[place] Pulse Ox Last 24 Hr 98.2 F-98.9 F 89-110 16-20 105-125/57-78 93-99 GENERAL: The patient is awake, alert, and fully oriented, in no acute distress. LUNGS: Breath sounds equal, clear to auscultation bilaterally, no wheezes, no crackles, no accessory muscle use. HEART: Regular rate and rhythm, S1, S2 ABDOMEN: Soft, nontender, nondistended LOWER EXTREMITIES: Wrappings removed exposing surgicel dressings which are clean and intact; minimal strikethrough; minimal bilateral knee swelling, no erythema, no areas of fluctuance NEUROLOGICAL: Cranial nerves II through XII grossly intact. Active Medications Generic Name Dose Route Start Last Admin Trade Name Freq PRN Reason Stop Dose Admin Al Hydroxide/Mg Hydroxide 30 ml 06/30/18 12:51 Mylanta Oral Suspension - PO Q4H PRN DYSPEPSIA Amlodipine Besylate 5 mg 07/01/18 10:00 07/04/18 09:23 Norvasc - PO 5 mg DAILY BLADIMIR Administration Aspirin 325 mg 06/30/18 22:00 07/04/18 09:20 Asa - PO 325 mg BID BLADIMIR Administration Benzocaine/Menthol 1 each 06/30/18 15:26 06/30/18 17:00 Cepacol Lozenge - MM 1 each PRN PRN Administration SORE THROAT Celecoxib 200 mg 06/30/18 22:00 07/04/18 09:20 Celebrex - PO 200 mg BID BLADIMIR Administration Lactobacillus Acidophilus 1 tab 07/01/18 10:00 07/04/18 09:19 Bacid - PO 1 tab DAILY BLADIMIR Administration Losartan Potassium 50 mg 07/01/18 10:00 07/04/18 09:23 Cozaar - PO 50 mg DAILY BLADIMIR Administration Multivitamins/Minerals/Vitamin C 1 tab 07/01/18 10:00 07/04/18 09:20 Tab-A-Vit - PO 1 tab DAILY BLADIMIR Administration Ondansetron HCl 4 mg 06/30/18 12:51 07/02/18 06:49 Zofran Injection IVPUSH 4 mg Q6H PRN Administration NAUSEA Oxycodone HCl 5 mg 06/30/18 12:57 Roxicodone - PO Q3H PRN PAIN LEVEL 1-3 Oxycodone HCl 10 mg 06/30/18 12:58 07/04/18 12:40 Roxicodone - PO 10 mg Q3H PRN Administration PAIN LEVEL 6-10 Pantoprazole Sodium 40 mg 07/01/18 10:00 07/04/18 09:19 Protonix - PO 40 mg DAILY BLADIMIR Administration Senna/Docusate Sodium 2 tablet 06/30/18 22:00 07/04/18 09:19 Pericolace - PO 2 tablet BID BLADIMIR Administration ASSESSMENT/PLAN: Osteoarthritis bilateral knees s/p [place] bilateral knee replacements on 06/30/18 Orthostatic hypotension --POD #4 --pain is well managed with PO meds --works daily with PT, able to weight bear and ambulate short distances Hypertension --BP stable --continue Losartan, amlodipine Hyperlipidemia --not on statin therapy Prostate cancer --stable DVT prophylaxis: ASA 325mg BID x 6 weeks; SCDs, TEDs, oob, ambulation; has been accepted to [facility], waiting on insurance approval. Full code. Visit type - Emergency Visit Emergency Visit: No - New Patient This patient is new to me today: No - Critical Care Critical Care patient: No
[2018-07-05] MEDS: oxyCODONE HCL 5 MG TABLET PO PRN ×2 (07:54→12:12)
[2018-07-05] MEDS: ASPIRIN 325 MG TABLET PO SCH (09:26)
[2018-07-05] MEDS: CELECOXIB 200 MG CAPSULE PO SCH (09:26)
[2018-07-05] MEDS: MULTIVITAMINS (DAILY MVI) TABLET (FP) PO SCH (09:27)
[2018-07-05] MEDS: SENNOSIDES/DOCUSATE COMBO (SENNA PLUS) TABLET (UD) PO SCH (09:27)
[2018-07-05] MEDS: LOSARTAN POTASSIUM 50 MG TABLET (FP) PO SCH (09:27)
[2018-07-05] MEDS: amLODIPine BESYLATE 5 MG TABLET (FP) PO SCH (09:27)
[2018-07-05] MEDS: LACTOBACILLUS ACIDOPHILUS 1 TABLET PO SCH (09:27)
[2018-07-05] MEDS: PANTOPRAZOLE 40 MG TABLET (FP) PO SCH ×2 (09:27→09:31)
[2018-07-05 11:48] VITALS: BP 102/71; PULSE 92; TEMP 98.3
--- NOTE | 2018-07-07 13:37 | PATH ---
Surgical Pathology Report Patient Name: MARK MARINA Med. Rec. #: [id number] /Age/Gender: 1955 (Age: 62) / M Account: [id number] Location: [facility] MED-SURG Taken: 06/30/2018 Received: 06/30/2018 Reported: 07/07/2018 Physicians: Stef Manzano M.D. Specimen(s) Received A: LEFT KNEE BONE & TISSUE B: RIGHT KNEE BONE & TISSUE Clinical History Osteoarthritis bilateral knees Final Diagnosis A. KNEE, BONE AND TISSUE, LEFT, TOTAL KNEE REPLACEMENT: DEGENERATIVE JOINT DISEASE. B. KNEE, BONE AND TISSUE, RIGHT, TOTAL KNEE REPLACEMENT: DEGENERATIVE JOINT DISEASE. Electronically Signed Sienna Patel M.D. Zay Sanders M.D. Gross Description A. Received in formalin labeled "left knee bone and tissue," is a 13.0 x 10.0 x 2.5 cm aggregate of multiple portions of bone and soft tissue. The tibial plateau measures 8.0 x 5.5 x 1.7 cm. There are multiple areas of eburnation present, measuring up to 2.8 cm in greatest dimension. The remaining articular surfaces are quijano-yellow and focally granular. The underlying trabecular bone is yellow and hard. Yard Inspector sections are submitted in one cassette, following decalcification. B. Received in formalin labeled "right knee bone and tissue," is an 11.5 x 10.0 x 2.5 cm aggregate of multiple portions of bone and soft tissue. The tibial plateau measures 7.6 x 6.0 x 1.7 cm. There is a 2.8 cm greatest dimension area of eburnation present. The remaining articular surfaces are quijano-yellow and focally granular. The underlying trabecular bone is yellow and hard. Yard Inspector sections are submitted in one cassette, following decalcification. 07/03/201807/03/2018
== END 2018-07-05 14:09 | DRG 462 ==
LOC: EDBD → FM/S 05:56
PROVIDERS: ADMIT Internal Medicine; ATTEND Orthopaedic Surgery
PROC: 0SRC0J9 Replacement of Right Knee Joint with Synthetic Substitute, Cemented, Open Approach (ICD-10-PCS; 2018-06-30)
PROC: 8E0Y0CZ Robotic Assisted Procedure of Lower Extremity, Open Approach (ICD-10-PCS; 2018-06-30)
PROC: 0SRD0J9 Replacement of Left Knee Joint with Synthetic Substitute, Cemented, Open Approach (ICD-10-PCS; principal; 2018-06-30 08:49)
DX: M17.0 Bilateral primary osteoarthritis of knee (principal); I10 Essential (primary) hypertension; K21.9 Gastro-esophageal reflux disease without esophagitis; E78.5 Hyperlipidemia, unspecified; I95.1 Orthostatic hypotension; Z85.46 Personal history of malignant neoplasm of prostate
CPT/HCPCS: 36415; 73560-TC-LT-FY; 73560-TC-RT-FY; 80048; 83735; 85027; 88304-TC; 88311-TC; 94760; 97116-GP; 97162-GP; J0131; J7030